=== PATIENT | male | born 1940 | race Caucasian/White ===

== ENCOUNTER → 2018-11-22 | Outpatient (CLI) | payer MEDICARE, OTHER, SELFPAY ==
--- NOTE | 2018-11-22 10:07 | MRI_ITS ---
STUDY: MRI BRAIN WITH AND WITHOUT CONTRAST (ATTENTION INTERNAL AUDITORY CANALS - I.A.C.'s) REASON FOR EXAM: Male, 78 years old. Hearing loss and dizziness with tinnitus in the right ear TECHNIQUE: Standardized multiplanar fat and water weighted pulse sequences were obtained. 15 IV Dotarem was administered for the contrast portion of the examination. COMPARISON: None. FINDINGS: Normal bilateral temporal bones. Normal bilateral internal auditory canals. There is no demonstrated intracanalicular or cisternal vestibular schwannoma (acoustic neuroma). There is no enhancement of the bilateral VIIth or VIIIth cranial nerves. Normal bilateral cochlea, vestibules and semicircular canals. Normal size of the ventricles and extra-axial spaces for the patient's age. There are a limited number of small white matter hyperintensities, distributed throughout the deep white matter tracts of the cerebral hemispheres, consistent with mild chronic white matter ischemic changes. Normal bilateral basal ganglia. Normal thalami. Normal flow voids within the major intracranial circulation suggesting patency by spin echo criteria. Normal venous enhancement. There is no enhancing intra-axial or extra-axial abnormality. There is no extra-axial fluid accumulation. Normal sella turcica, pituitary gland, infundibular stalk, optic chiasm and hypothalamus. Normal tectal plate and pineal gland. Normal midbrain, carolyn and medulla. Normal cerebellum. Normal basal cisterns. No demonstrated orbital abnormality, within the constraints of a routine brain study. Normal visualized paranasal sinuses. Normal calvarium and skull base. Normal visualized soft tissue structures. Normal visualized upper cervical spine. MRI/Brain W/WO Contrast IMPRESSION: Normal unenhanced and enhanced MRI of the bilateral internal auditory canals (I.A.C's). Mild microangiopathic white matter disease. Electronically Signed: Derek Cooper MD at 11:59 EDT Tel , Service support ,
[2018-11-22 11:11] LABS: CREATININE FINGERSTICK 1.1 mg/dL (0.70-1.30); EGFR FINGERSTICK > 60.0000 mL/min (>60)
== END | disposition home or self-care (01) ==
LOC: MRI 09:43
PROVIDERS: Referring Provider Otolaryngology; Visit Provider Otolaryngology
DX: H91.90 Unspecified hearing loss, unspecified ear (principal); R42 Dizziness and giddiness
CPT/HCPCS: 70553; A9575

== ENCOUNTER 2020-12-25 13:33 | Inpatient (IN) | payer MEDICARE, OTHER, SELFPAY ==
[2020-12-25] VITALS (8 sets, daily range): BP systolic 118–206; BP diastolic 64–118; PULSE 71–86; RESP 16–23; TEMP 36.6–37.2; O2SAT 92–99; BMI 24.3; BMI 24.5
--- NOTE | 2020-12-25 13:50 | CT_ITS ---
STUDY: CT BRAIN WITHOUT CONTRAST REASON FOR EXAM: Male, 80 years old. Confusion. Stroke like symptoms. RADIATION DOSAGE (If Supplied By Facility): CTDIvol = ( 44.99 ) mGy, DLP = ( 812.98 ) mGycm TECHNIQUE: Transaxial CT imaging of the brain was performed without administration of intravenous contrast material. Individualized dose optimization techniques were used for this CT. COMPARISON: No relevant priors. FINDINGS: Normal soft tissue structures. Normal calvarium. There is mild cerebral atrophy with widening of the extra-axial spaces and ventricular dilatation. There are areas of decreased attenuation within the white matter tracts of the supratentorial brain, consistent with microvascular disease changes. Normal basal ganglia and thalami. Normal brainstem. Normal cerebellum. There is no intracranial hemorrhage. There are no findings of an acute ischemic infarction. Atherosclerotic calcification of the vertebral arteries and cavernous portions of the internal carotid arteries bilaterally. Partial opacification of the ethmoid sinuses bilaterally. CT/Brain/Head without Contrast IMPRESSION: Chronic involutional changes of the brain. Partial opacification of the ethmoid sinuses bilaterally. Electronically Signed: Adams Martell MD at 14:33 EDT , Service support ,
--- NOTE | 2020-12-25 13:50 | EKG12_ITS ---
Test Reason : CONFUSION Blood Pressure : / mmHG Vent. Rate : 080 BPM Atrial Rate : 080 BPM P-R Int : 160 ms QRS Dur : 140 ms QT Int : 426 ms P-R-T Axes : 056 -77 058 degrees QTc Int : 491 ms Normal sinus rhythm Right bundle branch block Left anterior fascicular block Bifascicular block Minimal voltage criteria for LVH, may be normal variant Septal infarct , age undetermined , cannot be excluded Abnormal ECG Confirmed by MARYAN HWANG, GRISELDA ([id number]), sports editor DONOVAN HADDAD ([id number]) on 12/26/2020 11:28:52 AM Referred By: MARK/KHADAR Confirmed By:GRISELDA STEINBERG MD
[2020-12-25 13:58] LABS: Absolute Lymphocyte Count 1.79 X10^3/uL (0.83-4.51); Absolute Neutrophil Count 6.2 X10^3/uL (2.0-7.7); Basophil# 0.05 X10^3/uL; Basophil% 0.6 % (0-1); Eosinophil# 0.13 X10^3/uL; Eosinophils% 1.5 % (0-5); Hematocrit 44.3 % (40-54); Hemoglobin 14.8 g/dL (13.0-16.5); Lymphocyte # 1.79 X10^3/ul (0.83-4.51); Lymphocyte % 20.3 % (19-41); Mean Corp Hgb Conc 33.4 g/dL (32-36); Mean Corpuscular Volume 86.9 fL (80-94); Mean Platelet Vol. 12.4 fl (6.2-12.0); Monocyte# 0.58 X10^3/uL; Monocyte% 6.6 % (0-10); NRBC Flagged by Analyzer 0 % (0-5); Neutrophil # 6.23 X10^3/uL (2.7-7.7); Neutrophil % 70.8 % (47-70); Platelet Count 249 K/mm3 (150-450); RBC Distribution Width CV 13.6 % (11.6-14.6); RBC Distribution Width SD 43.5 fl (35.1-43.9); White Blood Count 8.8 K/mm3 (4.4-11.0)
--- NOTE | 2020-12-25 14:01 | NURSING ---
NO OLD EKG
[2020-12-25 14:12] LABS: ALB/GLOB Ratio 0.8 RATIO (0.9-2.4); AST(SGOT) 12 U/L (15-37); Alanine Aminotransfer ALT/SGPT 13 U/L (16-61); Albumin, Serum 2.9 g/dL (3.2-5.0); Alkaline Phosphatase 150 U/L (45-117); Anion Gap 6 (5-15); BUN 22 mg/dL (7-18); BUN/Creat Ratio 17.1 RATIO (10-20); Calcium,Total 8.6 mg/dL (8.5-10.1); Chloride 105 mmol/L (98-107); Creatinine, Serum 1.29 mg/dL (0.70-1.30); EST Glomerular Filtration Rate 57 mL/min (>60); Est Glom Filt Rate - Afr Amer 69 mL/min (>60); Estimated Creatinine Clearance 47.16 ml/min; Globulin 3.6 g/dL (2.2-4.2); Glucose 271 mg/dL (74-106); Potassium 3.4 mmol/L (3.5-5.1); Protein, Total 6.5 g/dL (6.4-8.2); Sodium Level 139 mmol/L (136-145)
[2020-12-25 15:03] LABS: Bacteria 0 SEEN /hpf (None Seen); Mucous, Urine 0 SEEN /hpf (<or=2+); Red Blood Cells-Urine 0 SEEN /hpf (0-5); Squamous Epithelial Cells - UA 0 SEEN /hpf (0-5)
[2020-12-25 15:05] LABS: Color, Urine Yellow (Yellow); Glucose, Dipstick 1000 mg/dl (Normal); Ketone-Dipstick 5 mg/dl (Negative); Leukocyte Esterase-Dipstick 25 /ul (Negative); Nitrite-Dipstick Positive (Negative); Occult Blood-Urine 50 /ul (Negative); Protein-Dipstick 500 mg/dl (Negative); Specific Gravity, Urine 1.015 (1.002-1.030); Urine Bilirubin Dipstick Negative (Negative); Urine Clarity Sl. Cloudy (Clear); Urine Urobilinogen Normal (Normal)
[2020-12-25 15:13] LABS: White Blood Cells 25-50 SEEN /hpf (0-5)
--- NOTE | 2020-12-25 15:17 | EX.ED.DYSGE1 ---
HPI History of Present Illness Chief Complaint: Confusion Narrative Narrative: 80-year-old male who lives by himself. He is a poor informant. Family reports that he has confusion that began yesterday. Patient reports that he was so weak overnight that he was unable to get in bed and he slept on the floor. States that today he has been unable to get a out of a chair because his legs are so weak. Patient reports that he had a nonproductive cough for the past 2 weeks. He denies any fever or chills. No chest pain or shortness of breath. No abdominal pain, nausea, vomiting, or diarrhea. No dysuria or frequency. No headache. He denies any fall. PFSH PFS Home Medications aspirin 81 mg PO DAILY 12/25/20 [History Last Taken 2 Months Ago ~10/25/20] atorvastatin 20 mg PO DAILY 12/25/20 [History Last Taken 2 Months Ago ~10/25/20] cholecalciferol (vitamin D3) 5,000 unit PO DAILY 12/25/20 [History Last Taken 2 Months Ago ~10/25/20] cyanocobalamin (vitamin B-12) 1,000 mcg IM QMONTH 12/25/20 [History Last Taken 2 Months Ago ~10/25/20] folic acid 1 mg PO DAILY 12/25/20 [History Last Taken 2 Months Ago ~10/25/20] glipizide 10 mg PO DAILY 12/25/20 [History Last Taken 2 Months Ago ~10/25/20] lisinopril 2.5 mg PO DAILY 12/25/20 [History Last Taken 2 Months Ago ~10/25/20] lisinopril 5 mg PO DAILY 12/25/20 [History Last Taken 2 Months Ago ~10/25/20] metformin 1,000 mg PO BID 12/25/20 [History Last Taken 2 Months Ago ~10/25/20] metoprolol tartrate 25 mg PO BID 12/25/20 [History Last Taken 2 Months Ago ~10/25/20] warfarin 1 mg PO DAILY 12/25/20 [History Last Taken 2 Months Ago ~10/25/20] warfarin 5 mg PO DAILY 12/25/20 [History Last Taken 2 Months Ago ~10/25/20] Allergy/AdvReac Type Severity Reaction Status Date / Time No Known Allergies Allergy Verified 12/25/20 13:38 Social History Smoking Status: Current every day smoker tobacco type: cigarettes ROS ROS ED Constitutional Constitutional ED: Denies chills, fever(s) or sweats Eyes Eyes: Denies change in vision ENT ENT ED: Denies sore throat Cardiovascular Cardiovascular: Denies chest pain Respiratory/Chest Respiratory/Chest: Reports cough; Denies dyspnea or dyspnea on exertion Gastrointestinal Gastrointestinal: Denies abdominal pain, diarrhea, melena, nausea or vomiting Genitourinary Genitourinary ED: Denies dysuria or urinary frequency Musculoskeletal Musculoskeletal: Denies myalgias Integumentary Denies rash Neurologic Neurologic: Reports weakness; Denies headache(s) or paresthesias EXAM Physical Exam Const Vital Signs: 12/25/20 13:33 12/25/20 15:08 Temperature 98.0 F Temperature Source Oral Pulse Rate 86 74 Respiratory Rate 16 18 Blood Pressure 206/118 H 190/96 H Blood Pressure Mean 147 127 Pulse Ox 97 97 Oxygen Delivery Method Room Air Room Air Positive well nourished and well developed General Appearance ED: well developed HEENT Reports normocephalic and head/scalp atraumatic Eyes PERRL Neck no lymphadenopathy, supple and no JVD General: Negative for tenderness Resp normal respiratory effort and clear to auscultation bilaterally Cardio regular rate and regular rhythm Rate: other Other Details: 2 out of 6 systolic murmur GI normal to inspection, nondistended, normoactive bowel sounds and non-tender GI Narrative: No guarding, rebound, or peritoneal signs. Palpation: soft Back/Spine Back/Spine Narrative: Nontender. Extremity General Extremety ED: Negative for edema or tenderness General Extremity: Negative for edema Neuro CN's II-XII intact bilaterally and no sensory deficits noted Neuro Narrative: Oriented x2. Sensorium / Orientation: alert Motor Exam: strength 5/5 throughout Psych mental status grossly normal Skin no rashes or lesions noted MDM MDM Lab Data Labs: Laboratory Results - last 24 hr 12/25/20 12/25/20 12/25/20 13:00 13:00 15:00 WBC 8.8 RBC 5.10 Hgb 14.8 Hct 44.3 MCV 86.9 MCH 29.0 MCHC 33.4 RDW Std Deviation 43.5 RDW Coeff of Annette 13.6 Plt Count 249 MPV 12.4 H Immature Gran % (Auto) 0.200 Neut % (Auto) 70.8 H Lymph % (Auto) 20.3 [place] % (Auto) 6.6 Eos % (Auto) 1.5 Baso % (Auto) 0.6 Absolute Neuts (auto) 6.2 Absolute Lymphs (auto) 1.79 Nucleated RBC % 0 Sodium 139 Potassium 3.4 L Chloride 105 Carbon Dioxide 28.0 Anion Gap 6 BUN 22 H Creatinine 1.29 Estim Creat Clear Calc 47.16 Est GFR (MDRD) Af Amer 69 Est GFR (MDRD) Non-Af 57 L BUN/Creatinine Ratio 17.1 Glucose 271 H Calcium 8.6 Total Bilirubin 0.50 AST 12 L ALT 13 L Alkaline Phosphatase 150 H Troponin I 0.018 Total Protein 6.5 Albumin 2.9 L Globulin 3.6 Albumin/Globulin Ratio 0.8 L Urine Color Yellow Urine Clarity Sl. Cloudy Urine pH 6.0 Ur Specific [place] 1.015 Urine Protein 500 H Urine Glucose (UA) 1000 H Urine Ketones 5 H Urine Occult Blood 50 H Urine Nitrite Positive H Urine Bilirubin Negative Urine Urobilinogen Normal Ur Leukocyte Esterase 25 H Urine RBC 0 SEEN Urine WBC 25-50 SEEN Ur Squamous Epith Cells 0 SEEN Urine Bacteria 0 SEEN Urine Mucus 0 SEEN Radiography Diagnostic Testing: Radiology Impression Brain CT 12/25/20 13:50 IMPRESSION: Chronic involutional changes of the brain. Partial opacification of the ethmoid sinuses bilaterally. Electronically Signed: Adams Martell MD at 14:33 EDT , Service support , EKG Initial EKG: Attestation: I personally reviewed and interpreted this EKG as follows: Interpretation: Sinus Rhythm, RBBB and LAFB Comments: EKG is sinus at 80 with a bifascicular block. Nonspecific ST changes. There is no old EKG for comparison. Treatment and Re-Evaluation Comments:: Emergency department course: Patient is resting comfortably. His urine is nitrite positive with 25-50 white blood cells. This was sent for culture. He was given a dose of Rocephin IV. Treatment plan: Patient be discussed with the hospitalist and admitted to the hospital for further evaluation and treatment. Discharge Plan Triage Chief Complaint: Confusion ED Provider: Placido Montgomery Dx/Rx/DC Orders Clinical Impression: Acute UTI, Delirium, Weakness Prescriptions: No Action atorvastatin 20 mg tablet 20 mg PO DAILY RF: 0 glipizide 5 mg tablet extended release 24hr 10 mg PO DAILY RF: 0 aspirin 81 mg Tablet,Delayed Release (Dr/Ec) 81 mg PO DAILY RF: 0 cyanocobalamin (vitamin B-12) 1,000 mcg/mL solution 1,000 mcg IM QMONTH RF: 0 metformin 1,000 mg tablet 1,000 mg PO BID RF: 0 warfarin 5 mg tablet 5 mg PO DAILY RF: 0 folic acid 1 mg tablet 1 mg PO DAILY RF: 0 lisinopril 5 mg tablet 5 mg PO DAILY RF: 0 warfarin 1 mg tablet 1 mg PO DAILY RF: 0 lisinopril 2.5 mg tablet 2.5 mg PO DAILY RF: 0 cholecalciferol (vitamin D3) 125 mcg (5,000 unit) capsule 5,000 unit PO DAILY RF: 0 metoprolol tartrate 25 mg tablet 25 mg PO BID RF: 0 Primary Care Provider: Austin Rowland Referrals: Austin Rowland MD [Primary Care Provider] -
[2020-12-25] MEDS: Ceftriaxone 1 GM/50 ML BAG IV (15:26)
--- NOTE | 2020-12-25 15:57 | PCM.HP.STD ---
Documented by User: Michelle Chatman NP, ORAL COMMUNICATION INSTRUCTOR-C 12/25/20 16:19 HPI - General General Date of Admission: 12/25/20 Date of Service: 12/25/20 Chief Complaint: Confusion, weakness. HPI Narrative RKII HYATT, is a 80 M who presents to the emergency room due to confusion and weakness. On assessment, patient states it is november,. Knows he is in [facility]. Denies fever, urinary symptoms. No family present at bedside. States he has been weak at home and has been crawling across to the floor to get around at home. Both of his knees have abrasions. He denies confusion. Patient is a poor informant regarding his past medical history. He states he had a stroke a few years ago. He states he became upset with his primary care provider and stopped following up and stopped taking all of his prescribed medications. Per records, it appears he has a past medical history of hypertension, hyperlipidemia, type 2 diabetes mellitus, paroxysmal atrial fibrillation, history of CVA. [facility] Medical History (Updated 12/25/20 @ 16:04 by Michelle Chatman NP, ORAL COMMUNICATION INSTRUCTOR-C) H/O nephrolithotomy with removal of calculi Home Medications aspirin 81 mg PO DAILY 12/25/20 [History Last Taken 2 Months Ago ~10/25/20] atorvastatin 20 mg PO DAILY 12/25/20 [History Last Taken 2 Months Ago ~10/25/20] cholecalciferol (vitamin D3) 5,000 unit PO DAILY 12/25/20 [History Last Taken 2 Months Ago ~10/25/20] cyanocobalamin (vitamin B-12) 1,000 mcg IM QMONTH 12/25/20 [History Last Taken 2 Months Ago ~10/25/20] folic acid 1 mg PO DAILY 12/25/20 [History Last Taken 2 Months Ago ~10/25/20] glipizide 10 mg PO DAILY 12/25/20 [History Last Taken 2 Months Ago ~10/25/20] lisinopril 2.5 mg PO DAILY 12/25/20 [History Last Taken 2 Months Ago ~10/25/20] lisinopril 5 mg PO DAILY 12/25/20 [History Last Taken 2 Months Ago ~10/25/20] metformin 1,000 mg PO BID 12/25/20 [History Last Taken 2 Months Ago ~10/25/20] metoprolol tartrate 25 mg PO BID 12/25/20 [History Last Taken 2 Months Ago ~10/25/20] warfarin 1 mg PO DAILY 12/25/20 [History Last Taken 2 Months Ago ~10/25/20] warfarin 5 mg PO DAILY 12/25/20 [History Last Taken 2 Months Ago ~10/25/20] Allergy/AdvReac Type Severity Reaction Status Date / Time No Known Allergies Allergy Verified 12/25/20 13:38 Family History Mother CHF (congestive heart failure) Father Alcohol abuse by father other (Father related to alcohol abuse. Mother related to CHF.) Surgical History History of appendectomy History of tonsillectomy Social History Smoking Status: Current every day smoker tobacco type: cigarettes ROS ROS Narrative Patient reports general weakness, bilateral knee abrasions related to crawling on floor. Constitutional Constitutional: Reports weakness; Denies change in weight, chills, fatigue or fever(s) Cardiovascular Cardiovascular: Denies chest pain, edema, lightheadedness, palpitations or syncope Respiratory/Chest Respiratory/Chest: Denies cough, dyspnea, productive cough, shortness of breath at rest, shortness of breath with exertion or wheezing Gastrointestinal Gastrointestinal: Denies abdominal pain, constipation, diarrhea, nausea or vomiting Genitourinary Genitourinary: Denies burning urination, difficulty urinating, dysuria, hematuria, urinary frequency, urinary incontinence or urinary urgency Musculoskeletal Musculoskeletal: Denies back pain, joint pain or muscle weakness Integumentary Integumentary: Reports systems reviewed and no addt'l complaints, except as documented Neurologic Neurologic: Denies abnormal speech, confusion, dizziness, focal weakness, numbness, paresthesias, seizure-like activity or syncope Psychiatric Psychiatric: Denies anxiety or depression Hematologic/Lymphatic Hematologic/Lymphatic: Denies anemia, easy bleeding or easy bruising Allergic/Immunologic Allergic/Immunologic: Denies hives or asthma Vital Signs Vital Signs Vital Signs: 12/25/20 13:33 12/25/20 15:08 12/25/20 15:33 Temperature 98.0 F 98.4 F Temperature Source Oral Oral Pulse Rate 86 74 71 Respiratory Rate 16 18 23 H Blood Pressure 206/118 H 190/96 H 118/67 Blood Pressure Mean 147 127 84 Pulse Ox 97 97 92 Oxygen Delivery Method Room Air Room Air Room Air Weight Weight: 169 lb 12.095 oz Body Mass Index (BMI) 24.3 Physical Exam Const alert and no apparent distress Orientation / Consciousness: oriented to person and oriented to place HEENT normocephalic and moist oral mucous membranes Eyes PERRL, EOMs intact bilaterally and conjunctivae normal Neck no lymphadenopathy Resp normal respiratory effort and clear to auscultation bilaterally Cardio regular rate, regular rhythm and no murmurs Peripheral Pulses: pulses 2+ throughout GI normal to inspection, nondistended, normoactive bowel sounds, non-tender and non-distended Extremity normal to inspection Skin no rashes or lesions noted Skin Narrative: Bilateral knee abrasions Lesions: no lesions Rashes: no rashes Trauma: no lacerations or abrasions Neuro CN's II-XII intact bilaterally, no focal motor deficits, no sensory deficits noted and deep tendon reflexes 2+ bilaterally Psych mental status grossly normal and affect normal Lab / Micro Data Result Diagrams: 12/25/20 13:00 12/25/20 13:00 Labs: Laboratory Results - last 24 hr 12/25/20 12/25/20 12/25/20 13:00 13:00 15:00 WBC 8.8 RBC 5.10 Hgb 14.8 Hct 44.3 MCV 86.9 MCH 29.0 MCHC 33.4 RDW Std Deviation 43.5 RDW Coeff of Annette 13.6 Plt Count 249 MPV 12.4 H Immature Gran % (Auto) 0.200 Neut % (Auto) 70.8 H Lymph % (Auto) 20.3 [place] % (Auto) 6.6 Eos % (Auto) 1.5 Baso % (Auto) 0.6 Absolute Neuts (auto) 6.2 Absolute Lymphs (auto) 1.79 Nucleated RBC % 0 Sodium 139 Potassium 3.4 L Chloride 105 Carbon Dioxide 28.0 Anion Gap 6 BUN 22 H Creatinine 1.29 Estim Creat Clear Calc 47.16 Est GFR (MDRD) Af Amer 69 Est GFR (MDRD) Non-Af 57 L BUN/Creatinine Ratio 17.1 Glucose 271 H Calcium 8.6 Total Bilirubin 0.50 AST 12 L ALT 13 L Alkaline Phosphatase 150 H Troponin I 0.018 Total Protein 6.5 Albumin 2.9 L Globulin 3.6 Albumin/Globulin Ratio 0.8 L Urine Color Yellow Urine Clarity Sl. Cloudy Urine pH 6.0 Ur Specific [place] 1.015 Urine Protein 500 H Urine Glucose (UA) 1000 H Urine Ketones 5 H Urine Occult Blood 50 H Urine Nitrite Positive H Urine Bilirubin Negative Urine Urobilinogen Normal Ur Leukocyte Esterase 25 H Urine RBC 0 SEEN Urine WBC 25-50 SEEN Ur Squamous Epith Cells 0 SEEN Urine Bacteria 0 SEEN Urine Mucus 0 SEEN Radiology Impression Brain CT 12/25/20 13:50 IMPRESSION: Chronic involutional changes of the brain. Partial opacification of the ethmoid sinuses bilaterally. Electronically Signed: Adams Martell MD at 14:33 EDT , Service support , Assessment & Plan Assessment/Plan (1) Acute UTI: (2) Weakness: PLAN: 1. Acute infectious encephalopathy and debility secondary to acute UTI-IV Rocephin pending cultures. PT/OT. Case management consult. Patient lives alone and states he has been crawling across the floor at his house. Patient stopped taking all of his medications 2 months ago. 2. Hypertension- elevated on admission. Resume home lisinopril, metoprolol. 3. Hyperlipidemia- continue statin. 4. Type 2 diabetes mellitus-hold oral regimen. Accu-Cheks with sliding scale insulin. 5. Paroxysmal atrial fibrillation-resume home Coumadin, metoprolol regimen. 6. History of CVA-continue aspirin, statin, Coumadin. DVT prophylaxis-resume home Coumadin, trend INR This patient was seen by BERNABE Giordano under the supervision of Dr. Redd. Documented by User: Dr. Ama Redd MD 12/25/20 16:45 HPI - General General Date of Admission: 12/25/20 [facility] Medical History (Updated 12/25/20 @ 16:04 by Michelle Chatman NP, ORAL COMMUNICATION INSTRUCTOR-C) H/O nephrolithotomy with removal of calculi Home Medications aspirin 81 mg PO DAILY 12/25/20 [History Last Taken 2 Months Ago ~10/25/20] atorvastatin 20 mg PO DAILY 12/25/20 [History Last Taken 2 Months Ago ~10/25/20] cholecalciferol (vitamin D3) 5,000 unit PO DAILY 12/25/20 [History Last Taken 2 Months Ago ~10/25/20] cyanocobalamin (vitamin B-12) 1,000 mcg IM QMONTH 12/25/20 [History Last Taken 2 Months Ago ~10/25/20] folic acid 1 mg PO DAILY 12/25/20 [History Last Taken 2 Months Ago ~10/25/20] glipizide 10 mg PO DAILY 12/25/20 [History Last Taken 2 Months Ago ~10/25/20] lisinopril 2.5 mg PO DAILY 12/25/20 [History Last Taken 2 Months Ago ~10/25/20] lisinopril 5 mg PO DAILY 12/25/20 [History Last Taken 2 Months Ago ~10/25/20] metformin 1,000 mg PO BID 12/25/20 [History Last Taken 2 Months Ago ~10/25/20] metoprolol tartrate 25 mg PO BID 12/25/20 [History Last Taken 2 Months Ago ~10/25/20] warfarin 1 mg PO DAILY 12/25/20 [History Last Taken 2 Months Ago ~10/25/20] warfarin 5 mg PO DAILY 12/25/20 [History Last Taken 2 Months Ago ~10/25/20] Allergy/AdvReac Type Severity Reaction Status Date / Time No Known Allergies Allergy Verified 12/25/20 13:38 Family History Mother CHF (congestive heart failure) Father Alcohol abuse by father Surgical History History of appendectomy History of tonsillectomy Social History Smoking Status: Current every day smoker tobacco type: cigarettes Lab / Micro Data Result Diagrams: 12/25/20 13:00 12/25/20 13:00 Addendum Addendum: This patient was seen in conjunction with Michelle Chatman. I have independently interviewed and examined the patient and reviewed pertinent historical, laboratory, and other data. I have reviewed her note and concur with her documentation 79-year-old male with multiple comorbidities as type II DM, paroxysmal atrial fibrillation, hypertension hyperlipidemia who comes in with confusion. Patient is a poor historian. He is alert oriented x2, not oriented to time. Patient comes in because of progressive weakness. He has poor oral intake. He has not been able to walk and has been crawling at home. He has abrasions on his knees. He quit taking his medicines more than a year ago. His labs are significant for UTI Physical Exam: Gen: Looks in some discomfort, appears disheveled, not pale, not jaundiced CVS:HS I +II, regular, no murmurs RESP:CTA GI: BS present and normal, soft, nontender, no palpable organs EXT:No edema, bruises on both anterior knees Labs: Potassium is 3.4, creatinine is 1.29, no previous creatinine to compare ASSESSMENT: 1. Acute metabolic/infectious encephalopathy secondary to UTI 2. Hypokalemia 3. Hypertension 4. Type II DM 5. Hyperlipidemia 6. Paroxysmal A. fib, 7. History of CVA 8. Suspected chronic cognitive impairment Plan: Continue on IV ceftriaxone, follow-up on urine cultures Replace potassium Gentle IV fluids Resume home medications Blood glucose checks with insulin sliding scale Discussed and explained in details the various types of CODE STATUS-full code, DNR CCA, DNR CC. Patient chose to be full code and wanted everything done. POA in the system had no number to call. Time spent discussing CODE STATUS 18 minutes Visit Charges Inpatient E&M: 73988 Init Hosp L3
[2020-12-25 17:16] LABS: International Normalized Ratio 1.1
[2020-12-25] MEDS: 0.9% Normal Saline 1,000 ML 100 ML IV (17:19)
[2020-12-25] MEDS: Lisinopril 5 MG Tablet PO (17:20)
[2020-12-25 17:26] LABS: Bedside Glucose 237 mg/dL (70-110)
[2020-12-25] MEDS: Potassium Chloride Oral Tablet 20 MEQ 40 MEQ PO (17:29)
[2020-12-25] MEDS: Lisinopril 2.5 MG Tablet PO (17:29)
[2020-12-25] MEDS: Insulin Lispro 100 UNIT/ML INSULN.PEN SC ×2 (17:29→21:17)
[2020-12-25] MEDS: 0.9% Saline Lock 10 ML Syringe IV (18:53)
[2020-12-25] MEDS: hydrALAZINE 20 MG/ML Vial 10 MG IV (18:53)
[2020-12-25] MEDS: Metoprolol Tartrate 25 MG Tablet PO (21:17)
[2020-12-25] MEDS: Heparin Injection (Vial) 5,000 UNIT/ML VIAL 5000 UNIT SC (21:17)
[2020-12-25] MEDS: Atorvastatin Calcium 20 MG Tablet PO (21:17)
[2020-12-25 22:30] LABS: Bedside Glucose 318 mg/dL (70-110)
[2020-12-26] VITALS (8 sets, daily range): BP systolic 139–190; BP diastolic 57–87; PULSE 63–76; RESP 16–18; TEMP 35.9–37; O2SAT 94–98
[2020-12-26] MEDS: 0.9% Normal Saline 1,000 ML 100 ML IV ×3 (02:43→21:44)
[2020-12-26] MEDS: Heparin Injection (Vial) 5,000 UNIT/ML VIAL 5000 UNIT SC ×3 (05:06→21:44)
[2020-12-26] MEDS: Ondansetron 4 MG/2 ML Vial IV (05:38)
[2020-12-26 06:00] LABS: Absolute Lymphocyte Count 1.56 X10^3/uL (0.83-4.51); Absolute Neutrophil Count 6.7 X10^3/uL (2.0-7.7); Basophil# 0.05 X10^3/uL; Basophil% 0.6 % (0-1); Eosinophil# 0.11 X10^3/uL; Eosinophils% 1.2 % (0-5); Hematocrit 44.1 % (40-54); Hemoglobin 14.5 g/dL (13.0-16.5); Lymphocyte # 1.56 X10^3/ul (0.83-4.51); Lymphocyte % 17.3 % (19-41); Mean Corp Hgb Conc 32.9 g/dL (32-36); Mean Corpuscular Hgb 28.5 pg (27.0-32.0); Mean Corpuscular Volume 86.8 fL (80-94); Mean Platelet Vol. 12.2 fl (6.2-12.0); Monocyte# 0.57 X10^3/uL; Monocyte% 6.3 % (0-10); NRBC Flagged by Analyzer 0 % (0-5); Neutrophil # 6.72 X10^3/uL (2.7-7.7); Neutrophil % 74.3 % (47-70); Platelet Count 258 K/mm3 (150-450); RBC Distribution Width CV 13.5 % (11.6-14.6); RBC Distribution Width SD 42.8 fl (35.1-43.9); Red Blood Count 5.08 M/mm3 (4.6-6.2)
[2020-12-26 06:13] LABS: International Normalized Ratio 1.1; Prothrombin Time (Protime)PT. 13.8 SECONDS (11.7-14.9)
[2020-12-26 06:26] LABS: ALB/GLOB Ratio 0.8 RATIO (0.9-2.4); AST(SGOT) 19 U/L (15-37); Alanine Aminotransfer ALT/SGPT 14 U/L (16-61); Albumin, Serum 2.6 g/dL (3.2-5.0); Alkaline Phosphatase 138 U/L (45-117); Anion Gap 7 (5-15); BUN 19 mg/dL (7-18); BUN/Creat Ratio 16.4 RATIO (10-20); Calcium,Total 8.3 mg/dL (8.5-10.1); Chloride 109 mmol/L (98-107); Creatinine, Serum 1.16 mg/dL (0.70-1.30); EST Glomerular Filtration Rate 64 mL/min (>60); Est Glom Filt Rate - Afr Amer 78 mL/min (>60); Estimated Creatinine Clearance 50.79 ml/min; Globulin 3.4 g/dL (2.2-4.2); Glucose 261 mg/dL (74-106); Potassium 3.7 mmol/L (3.5-5.1); Sodium Level 140 mmol/L (136-145)
[2020-12-26] MEDS: Insulin Lispro 100 UNIT/ML INSULN.PEN SC ×4 (06:37→21:44)
[2020-12-26 06:40] LABS: Bedside Glucose 234 mg/dL (70-110)
[2020-12-26] MEDS: hydrALAZINE 20 MG/ML Vial 10 MG IV (06:45)
[2020-12-26] MEDS: Ceftriaxone 1 GM/50 ML BAG IV (08:38)
[2020-12-26] MEDS: amLODIPine 10 MG Tablet PO (08:40)
[2020-12-26] MEDS: Lisinopril 5 MG Tablet PO (08:41)
[2020-12-26] MEDS: Lisinopril 2.5 MG Tablet PO (08:41)
[2020-12-26] MEDS: Cholecalciferol (VIT D3) 25 MCG TABLET (1,000 UNITS) 125 MCG PO (08:41)
[2020-12-26] MEDS: Metoprolol Tartrate 25 MG Tablet PO ×2 (08:42→21:43)
[2020-12-26] MEDS: Aspirin E.C. 81 MG Tablet PO (08:42)
--- NOTE | 2020-12-26 09:59 | CASEMGMT ---
Patient is A&OX2 per nursing. There are no contacts with phone numbers listed and patient has not been to [facility] before except for an MRI. SW called patient's doctor's office and left a message requesting a return call. Shirley MAR
--- NOTE | 2020-12-26 10:05 | CASEMGMT ---
RADHA received a return call from Dr Rowland's office and they have patient's daughter Nadiya listed as an emergency contact. Her phone number is [phone]. RADHA put this information in the computer. Shirley MAR
--- NOTE | 2020-12-26 10:32 | CASEMGMT ---
Addendum entered by Shirley Kenny 12/26/20 10:52: SW asked patient for his nephew's contact information. He had some trouble getting it on his phone. He would get so far and then not know what to do next. SW then helped him and was able to obtain the phone number. His name is Rosa [phone]. This was also added in computer. Shirley MAR Original Note: Assessment- SW completed assessment with patient at bedside. SW woke him up and he was willing to participate. SW did also call patient's nephew to verify patient's answers as he is somewhat confused. Living situation- Patient lives alone in a 2 story home with 1 entry step. ? PCP: Was Dr Rowland but he wants a new PCP Specialists: None Pharmacy: [facility] in [place], but he wants to switch to [facility] in [place] because it is closer. DME:? Walker and cane ADL's/IADL's: Per patient and his nephew patient is independent with all ADLs and IADLs. 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 Past SNF/rehab: None Past HH: Yes. He koenig not know the agency LW: Yes. He is aware it is not on file at [facility] POA:? Yes. He is aware it is not on file at [facility]. His daughter Nadiya is his Healthcare POA. ? ? Plan: RADHA obtained permission to call patient's nephew and/or daughter. RADHA called patient's nephew Rosa. He said that he checks on patient regularly. He owns the farm and patient lives [place] house [place] the farm. He said patient normally does really well at home. He is very stubborn and stopped going to his doctor because they disagreed on something. He said patient and his daughter do not always get along. RADHA thanked him for his assistance. ? Shirley STORM
[2020-12-26 12:00] LABS: Bedside Glucose 274 mg/dL (70-110)
--- NOTE | 2020-12-26 12:15 | PN.HOSP_ITS ---
Subjective Subjective Feels little bit better than when he came in, states that he has a little bit of an upset stomach this morning was only able to eat few pieces of farrell Objective Data Objective Data Vital Signs: Vital Signs Temp Pulse Resp BP Pulse Ox 97.1 F L 76 18 141/62 H 97 12/26/20 08:30 12/26/20 08:42 12/26/20 08:30 12/26/20 08:42 12/26/20 08:30 Oxygen Delivery Method Room Air Weight: 165 lb 12.813 oz Body Mass Index (BMI) 24.5 Intake & Output: Intake and Output for Last 24 Hours 12/25/20 12/26/20 12/27/20 03:59 03:59 03:59 Intake Total 1350 / 1350 1125 / 1125 Output Total 800 / 800 651 / 651 Balance 550 / 550 474 / 474 Lab / Micro Data Result Diagrams: 12/26/20 05:48 12/26/20 05:48 Labs: Laboratory Results - last 24 hr 12/25/20 12/25/20 12/25/20 13:00 13:00 13:00 WBC 8.8 RBC 5.10 Hgb 14.8 Hct 44.3 MCV 86.9 MCH 29.0 MCHC 33.4 RDW Std Deviation 43.5 RDW Coeff of Annette 13.6 Plt Count 249 MPV 12.4 H Immature Gran % (Auto) 0.200 Neut % (Auto) 70.8 H Lymph % (Auto) 20.3 Hunt % (Auto) 6.6 Eos % (Auto) 1.5 Baso % (Auto) 0.6 Absolute Neuts (auto) 6.2 Absolute Lymphs (auto) 1.79 Nucleated RBC % 0 PT 14.0 INR 1.1 Sodium 139 Potassium 3.4 L Chloride 105 Carbon Dioxide 28.0 Anion Gap 6 BUN 22 H Creatinine 1.29 Estim Creat Clear Calc 47.16 Est GFR (MDRD) Af Amer 69 Est GFR (MDRD) Non-Af 57 L BUN/Creatinine Ratio 17.1 Glucose 271 H Calcium 8.6 Total Bilirubin 0.50 AST 12 L ALT 13 L Alkaline Phosphatase 150 H Troponin I 0.018 Total Protein 6.5 Albumin 2.9 L Globulin 3.6 Albumin/Globulin Ratio 0.8 L Urine Color Urine Clarity Urine pH Ur Specific [place] Urine Protein Urine Glucose (UA) Urine Ketones Urine Occult Blood Urine Nitrite Urine Bilirubin Urine Urobilinogen Ur Leukocyte Esterase Urine RBC Urine WBC Ur Squamous Epith Cells Urine Bacteria Urine Mucus POC Glucose 12/25/20 12/25/20 12/25/20 15:00 17:23 21:14 WBC RBC Hgb Hct MCV MCH MCHC RDW Std Deviation RDW Coeff of Annette Plt Count MPV Immature Gran % (Auto) Neut % (Auto) Lymph % (Auto) Hunt % (Auto) Eos % (Auto) Baso % (Auto) Absolute Neuts (auto) Absolute Lymphs (auto) Nucleated RBC % PT INR Sodium Potassium Chloride Carbon Dioxide Anion Gap BUN Creatinine Estim Creat Clear Calc Est GFR (MDRD) Af Amer Est GFR (MDRD) Non-Af BUN/Creatinine Ratio Glucose Calcium Total Bilirubin AST ALT Alkaline Phosphatase Troponin I Total Protein Albumin Globulin Albumin/Globulin Ratio Urine Color Yellow Urine Clarity Sl. Cloudy Urine pH 6.0 Ur Specific [place] 1.015 Urine Protein 500 H Urine Glucose (UA) 1000 H Urine Ketones 5 H Urine Occult Blood 50 H Urine Nitrite Positive H Urine Bilirubin Negative Urine Urobilinogen Normal Ur Leukocyte Esterase 25 H Urine RBC 0 SEEN Urine WBC 25-50 SEEN Ur Squamous Epith Cells 0 SEEN Urine Bacteria 0 SEEN Urine Mucus 0 SEEN POC Glucose 237 H 318 H 12/26/20 12/26/20 12/26/20 05:48 05:48 05:48 WBC 9.0 RBC 5.08 Hgb 14.5 Hct 44.1 MCV 86.8 MCH 28.5 MCHC 32.9 RDW Std Deviation 42.8 RDW Coeff of Annette 13.5 Plt Count 258 MPV 12.2 H Immature Gran % (Auto) 0.300 Neut % (Auto) 74.3 H Lymph % (Auto) 17.3 L Hunt % (Auto) 6.3 Eos % (Auto) 1.2 Baso % (Auto) 0.6 Absolute Neuts (auto) 6.7 Absolute Lymphs (auto) 1.56 Nucleated RBC % 0 PT 13.8 INR 1.1 Sodium 140 Potassium 3.7 Chloride 109 H Carbon Dioxide 24.0 Anion Gap 7 BUN 19 H Creatinine 1.16 Estim Creat Clear Calc 50.79 Est GFR (MDRD) Af Amer 78 Est GFR (MDRD) Non-Af 64 BUN/Creatinine Ratio 16.4 Glucose 261 H Calcium 8.3 L Total Bilirubin 0.50 AST 19 ALT 14 L Alkaline Phosphatase 138 H Troponin I Total Protein 6.0 L Albumin 2.6 L Globulin 3.4 Albumin/Globulin Ratio 0.8 L Urine Color Urine Clarity Urine pH Ur Specific [place] Urine Protein Urine Glucose (UA) Urine Ketones Urine Occult Blood Urine Nitrite Urine Bilirubin Urine Urobilinogen Ur Leukocyte Esterase Urine RBC Urine WBC Ur Squamous Epith Cells Urine Bacteria Urine Mucus POC Glucose 12/26/20 12/26/20 06:36 11:22 WBC RBC Hgb Hct MCV MCH MCHC RDW Std Deviation RDW Coeff of Annette Plt Count MPV Immature Gran % (Auto) Neut % (Auto) Lymph % (Auto) Hunt % (Auto) Eos % (Auto) Baso % (Auto) Absolute Neuts (auto) Absolute Lymphs (auto) Nucleated RBC % PT INR Sodium Potassium Chloride Carbon Dioxide Anion Gap BUN Creatinine Estim Creat Clear Calc Est GFR (MDRD) Af Amer Est GFR (MDRD) Non-Af BUN/Creatinine Ratio Glucose Calcium Total Bilirubin AST ALT Alkaline Phosphatase Troponin I Total Protein Albumin Globulin Albumin/Globulin Ratio Urine Color Urine Clarity Urine pH Ur Specific [place] Urine Protein Urine Glucose (UA) Urine Ketones Urine Occult Blood Urine Nitrite Urine Bilirubin Urine Urobilinogen Ur Leukocyte Esterase Urine RBC Urine WBC Ur Squamous Epith Cells Urine Bacteria Urine Mucus POC Glucose 234 H 274 H Radiography Diagnostic Testing: Radiology Impression Brain CT 12/25/20 13:50 IMPRESSION: Chronic involutional changes of the brain. Partial opacification of the ethmoid sinuses bilaterally. Electronically Signed: Adams Martell MD at 14:33 EDT , Service support , Physical Exam Const alert, oriented x3 and no apparent distress HEENT moist oral mucous membranes Head and Scalp: normocephalic Eyes PERRL, EOMs intact bilaterally and conjunctivae normal Neck no lymphadenopathy, supple and no JVD Resp normal respiratory effort and clear to auscultation bilaterally Auscultation: Negative for crackles, rales, rhonchi or wheezes Cardio regular rate, regular rhythm, S1 normal heart sound, S2 normal heart sound, no murmurs and no gallops GI soft to palpation, non-tender and non-distended; Negative for hepatosplenomegaly Extremity no clubbing, cyanosis or edema Skin no rashes or lesions noted Neuro no focal motor deficits and no sensory deficits noted Psych affect normal Appearance: appropriate Assessment & Plan Assessment/Plan (1) Acute UTI: (2) Weakness: (3) Diabetes mellitus, type 2: QUALIFIERS: Diabetes mellitus assisted insulin use: without assisted use Diabetes mellitus complication status: with hyperglycemia Qualified Code(s): E11.65 - Type 2 diabetes mellitus with hyperglycemia (4) Acute metabolic encephalopathy: PLAN: 1. Acute metabolic encephalopathy secondary to UTI versus hyperglycemia -On admission he was confused which has resolved with initiation of antibiotics and insulin -Urine culture is pending -Blood sugar on admission was 271, and his UA had 1000 glucose -UA did not have any urine bacteria, did have leukocytes and small leukocyte esterase with positive nitrites -In the meantime we will continue with his antibiotics and await urine culture though I believe that his encephalopathy was secondary to his hyperglycemia and the fact that he has not been following up with his PCP and has not been taking his medications appropriately -PT/OT for evaluation for generalized weakness and for possible placement. 2. DM 2 -Will increase his sliding scale insulin high medium dose, and add a long-acting insulin -We will continue to monitor with Accu-Cheks AC at bedtime 3. HTN/HLD/paroxysmal A. fib -Continue with Coumadin INR is subtherapeutic -Continue with his metoprolol and lisinopril and will add Norvasc secondary to his hypertension that on admission was higher than 200 systolics and is currently in the 140s 4. History of CVA -Continue with Coumadin, statin, and aspirin -We will continue to monitor his INR DVT prophylaxis-resume home Coumadin, trend INR Visit Charges Inpatient E&M: 80611 Subs Hosp L2
--- NOTE | 2020-12-26 14:00 | CASEMGMT ---
SW reviewed patient's therapy notes and he did not do well. SW went to patient's room. His nephew was present. SW introduced self. SW explained that patient did not do well with therapy and they are recommending in go somewhere for rehab. Patient asked where and SW told him wherever he chooses. Patient's nephew spoke up and said he has been to [facility] in the past. SW asked if that is where they would prefer. He said he will talk with patient as patient's there. SW gave philtent's nephew a list of SNF providers including quality and resource use data and consistent with the patient?s preferred geographic region, medical needs, and insurance network. SW spoke with patient's nephew in the hallway. He asked when patient would be discharged. SW told him probably in a day or two, but it is up to the doctor. He said it would either be [facility] or [facility]. He told SW to ask patient. SW told him that patient will have to quarantine for 14 days since he did not get COVID vaccine. SW told him after that he can schedule visits. SW told him SW will keep him updated. He thanked SW for the help. SW went to patient's room and asked if he preferred [facility] or [facility]. He said he does not know the difference. He said can I smoke at either of them. SW told him SW thinks he could smoke at [facility]. He said then that is where he wants to go. SW called [facility] regarding referral and faxed referral as well. Await their response. Plan: [facility] pending their acceptance and patient being medically ready. Shirley MAR
[2020-12-26 17:05] LABS: Bedside Glucose 254 mg/dL (70-110)
[2020-12-26] MEDS: Atorvastatin Calcium 20 MG Tablet PO (21:43)
[2020-12-26 21:50] LABS: Bedside Glucose 188 mg/dL (70-110)
[2020-12-27 02:30] VITALS: BP 151/76; PULSE 60; RESP 16; TEMP 36.4; O2SAT 97
[2020-12-27 06:15] LABS: Absolute Lymphocyte Count 1.88 X10^3/uL (0.83-4.51); Absolute Neutrophil Count 6.5 X10^3/uL (2.0-7.7); Basophil# 0.05 X10^3/uL; Basophil% 0.5 % (0-1); Eosinophil# 0.15 X10^3/uL; Eosinophils% 1.6 % (0-5); Hematocrit 40.2 % (40-54); Hemoglobin 13.2 g/dL (13.0-16.5); Lymphocyte # 1.88 X10^3/ul (0.83-4.51); Lymphocyte % 20.4 % (19-41); Mean Corp Hgb Conc 32.8 g/dL (32-36); Mean Corpuscular Hgb 28.8 pg (27.0-32.0); Mean Corpuscular Volume 87.8 fL (80-94); Mean Platelet Vol. 12.3 fl (6.2-12.0); Monocyte# 0.64 X10^3/uL; Monocyte% 6.9 % (0-10); NRBC Flagged by Analyzer 0 % (0-5); Neutrophil # 6.48 X10^3/uL (2.7-7.7); Neutrophil % 70.3 % (47-70); Platelet Count 226 K/mm3 (150-450); RBC Distribution Width CV 13.7 % (11.6-14.6); RBC Distribution Width SD 44.1 fl (35.1-43.9); Red Blood Count 4.58 M/mm3 (4.6-6.2); White Blood Count 9.2 K/mm3 (4.4-11.0)
[2020-12-27 06:45] VITALS: BP 160/80; PULSE 63; RESP 18; TEMP 36.6; O2SAT 97
[2020-12-27 06:45] LABS: Anion Gap 6 (5-15); BUN 18 mg/dL (7-18); BUN/Creat Ratio 16.4 RATIO (10-20); Calcium,Total 8.2 mg/dL (8.5-10.1); Chloride 113 mmol/L (98-107); EST Glomerular Filtration Rate 68 mL/min (>60); Est Glom Filt Rate - Afr Amer 83 mL/min (>60); Estimated Creatinine Clearance 53.56 ml/min; Glucose 188 mg/dL (74-106); Potassium 3.5 mmol/L (3.5-5.1); Sodium Level 141 mmol/L (136-145)
[2020-12-27] MEDS: Heparin Injection (Vial) 5,000 UNIT/ML VIAL 5000 UNIT SC (06:47)
[2020-12-27] MEDS: Insulin Lispro 100 UNIT/ML INSULN.PEN SC ×3 (06:47→16:45)
[2020-12-27] MEDS: 0.9% Normal Saline 1,000 ML 100 ML IV (06:54)
[2020-12-27 06:55] LABS: Bedside Glucose 191 mg/dL (70-110)
[2020-12-27 09:45] VITALS: O2SAT 97
[2020-12-27 09:50] VITALS: BP 150/66; PULSE 61; RESP 18; TEMP 36.6; O2SAT 98
[2020-12-27 09:57] VITALS: PULSE 62
[2020-12-27] MEDS: Metoprolol Tartrate 25 MG Tablet PO (09:57)
[2020-12-27] MEDS: Aspirin E.C. 81 MG Tablet PO (09:57)
[2020-12-27] MEDS: Ceftriaxone 1 GM/50 ML BAG IV (09:57)
[2020-12-27] MEDS: amLODIPine 10 MG Tablet PO (09:57)
[2020-12-27] MEDS: Cholecalciferol (VIT D3) 25 MCG TABLET (1,000 UNITS) 125 MCG PO (09:57)
[2020-12-27] MEDS: Lisinopril 2.5 MG Tablet PO (09:58)
[2020-12-27] MEDS: Lisinopril 5 MG Tablet PO (09:58)
--- NOTE | 2020-12-27 10:18 | CASEMGMT ---
RADHA spoke with [facility] and they can take patient when he is ready. RADHA received a message that patient's daughter wants patient to go to a facility in [place] where she lives. RADHA went to patient's room. RADHA explained his daughter would like him to go to a facility in [place] to be closer to her. He said, She's wrong again isn't she. He said, I will go to a facility, but I will not go down there. RADHA spoke with physician and patient may not be alert and oriented X3 or 4 but it is felt he can make the decision regarding where he wants to go. RADHA called patient's daughter. Introduced self and role at [facility]. She said she wants patient to go to a facility down where she lives. RADHA told her about RADHA's conversation with patient this am. She said she does not trust the people that are keeping an eye on him. She said they steal his meds. RADHA told him that he will not be going home from here he will be going to a SNF. RADHA told her SW can alert Adult Protective Services of her concerns. She asked why she was not consulted regarding where patient will go at d/c. RADHA told her that it is felt patient is alert and oriented enough to make this decision. She asked if we can keep him until tomorrow so she can come in and talk with him. RADHA told her physician just rounded and patient is ready today. She told SW she will have to talk with the [facility] because this isn't working. She asked about the name of the facility. RADHA gave her [facility]. RADHA offered to give her the phone number and she said she would look it up. RADHA called Gabbie at [facility] and let her know patient will be coming today. RADHA also let her know about the daughter's concerns. Plan: d/c to [facility] under skilled level of care. Shirley MAR
--- NOTE | 2020-12-27 11:46 | PCM.TXEXTCAR ---
Diet 12/25/20 16:49 Diet: Cardiac - Heart Healthy Food consistency:: Regular Liquid Consistency:: Regular/Thin Diet: Consistent Carb - Calorie Controlled Food consistency:: Regular Liquid Consistency:: Regular/Thin How many daily calories?: 2000 calorie Routine Orders/Code Status Routine Lab Work: INR Code Status: Full Code Wound(s) Bilat knees: Wound Type: Abrasion Therapies Physical Therapy: Eval and Treat Occupational Therapy: Eval and Treat Problem/Diagnosis (1) Acute UTI: Status: Acute (2) Weakness: Status: Acute (3) Diabetes mellitus, type 2: Status: Acute (4) Acute metabolic encephalopathy: Status: Resolved Allergies/Procedures Done in Hospital Allergies No Known Allergies Allergy (Verified 12/25/20 13:38) Procedures: None Type of Care/Length of Stay Estimated LOS: Convalescent Care Less Than 30 days Type of Care Needed: Skilled Rehab Potential: Good Prognosis: Good Additional Orders/Day of Discharge Day of Discharge: 12/27/20 Dietary and Speech Recommendations Dietitian Recommendations/Changes: Continue cardiac-heart healthy consistent carbohydrate calorie controlled 2000kcal/day diet. Will add ONS if intake fails at meals. Naresh Green MS, RDN, LD Discharge Plan Admission Admit Date/Time: 12/25/20 15:30 Attending Provider: Pedro Figueroa Primary Care Provider: [facility]land Discharge Orders/Prescriptions Prescriptions: New amlodipine 10 mg Tablet 10 mg PO DAILY Qty: 0 RF: 0 cephalexin 500 mg capsule 500 mg PO Q8H Qty: 14 RF: 0 Continued atorvastatin 20 mg tablet 20 mg PO DAILY RF: 0 glipizide 5 mg tablet extended release 24hr 10 mg PO DAILY RF: 0 aspirin 81 mg Tablet,Delayed Release (Dr/Ec) 81 mg PO DAILY RF: 0 cyanocobalamin (vitamin B-12) 1,000 mcg/mL solution 1,000 mcg IM QMONTH RF: 0 metformin 1,000 mg tablet 1,000 mg PO BID RF: 0 warfarin 5 mg tablet 5 mg PO DAILY RF: 0 folic acid 1 mg tablet 1 mg PO DAILY RF: 0 lisinopril 5 mg tablet 5 mg PO DAILY RF: 0 lisinopril 2.5 mg tablet 2.5 mg PO DAILY RF: 0 cholecalciferol (vitamin D3) 125 mcg (5,000 unit) capsule 5,000 unit PO DAILY RF: 0 metoprolol tartrate 25 mg tablet 25 mg PO BID RF: 0 warfarin 1 mg tablet 1 mg PO DAILY Qty: 0 RF: 0 Referrals / Follow Up: Austin Rowland MD [Primary Care Provider] - Within 2 Weeks Disposition Disposition (needs filled in before D/C Order can be placed): Assisted Facility
[2020-12-27 12:00] LABS: Bedside Glucose 242 mg/dL (70-110)
--- NOTE | 2020-12-27 13:45 | PCM.DC.SUM ---
Providers Date of Admission: 12/25/20 Primary Care Physician: Dr. [facility] MD Reason For Visit: ACUTE ENCEPHALOPATHY/UTI Diagnosis Discharge Diagnosis (1) Acute UTI: Status: Acute Code(s): N39.0 - Urinary tract infection, site not specified (2) Weakness: Status: Acute Code(s): R53.1 - Weakness (3) Diabetes mellitus, type 2: Status: Acute Code(s): E11.9 - Type 2 diabetes mellitus without complications Qualifiers: Diabetes mellitus termite exterminator helper insulin use: without termite exterminator helper use Diabetes mellitus complication status: with hyperglycemia Qualified Code(s): E11.65 - Type 2 diabetes mellitus with hyperglycemia (4) Acute metabolic encephalopathy: Status: Resolved Code(s): G93.41 - Metabolic encephalopathy Medications at Discharge Home Medications aspirin 81 mg PO DAILY 12/25/20 atorvastatin 20 mg PO DAILY 12/25/20 cholecalciferol (vitamin D3) 5,000 unit PO DAILY 12/25/20 cyanocobalamin (vitamin B-12) 1,000 mcg IM QMONTH 12/25/20 folic acid 1 mg PO DAILY 12/25/20 glipizide 10 mg PO DAILY 12/25/20 lisinopril 2.5 mg PO DAILY 12/25/20 lisinopril 5 mg PO DAILY 12/25/20 metformin 1,000 mg PO BID 12/25/20 metoprolol tartrate 25 mg PO BID 12/25/20 warfarin 5 mg PO DAILY 12/25/20 amlodipine 10 mg PO DAILY #0 tab 12/27/20 cephalexin 500 mg PO Q8H #14 cap 12/27/20 warfarin 1 mg PO DAILY #0 tab 12/27/20 Hospital Course Operations None Procedures None Summary of Care Provided Minutes Spent on Discharge: 36 Hospital Course: Per HPI: RIKI HYATT, is a 80 M who presents to the emergency room due to confusion and weakness.? On assessment, patient states it is november,.? Knows he is in [facility].? Denies fever, urinary symptoms.? No family present at bedside.? States he has been weak at home and has been crawling across to the floor to get around at home.? Both of his knees have abrasions.? He denies confusion.? Patient is a poor informant regarding his past medical history.? He states he had a stroke a few years ago.? He states he became upset with his primary care provider and stopped following up and stopped taking all of his prescribed medications.? Per records, it appears he has a past medical history of hypertension, hyperlipidemia, type 2 diabetes mellitus, paroxysmal atrial fibrillation, history of CVA. Hospital Course: 1. Acute metabolic encephalopathy secondary to UTI and hyperglycemia/DM [age]-old male presented to the emergency room with confusion and weakness. He thought that the year and history was 1940 but he knew he was in [facility]. His confusion has since resolved, his urine cultures have resulted in staph epidermidis greater than 100,000 CFU's therefore he was transitioned to p.o. Keflex from most 5 more days. He was also found to be hyperglycemic with blood sugars in the 200s, he states that he had an issue with his PCP so he stopped going to his doctor and stopped taking all of his meds including his Coumadin for his A. fib. He was placed on insulin and got his blood sugars below 200. I do recommend continuing his glipizide and his metformin as an outpatient and if necessary can add on insulin at that point once his diabetes is stable. We discussed the issue of placement with both him and his family, and [facility], I discussed with him the plan for discharge today and he expressed understanding of the risks and benefits of going to [facility] facility today and would like to go today. 2. HTN/HLD/paroxysmal A. fib-when he stopped taking his medications that include his Coumadin. He has been subtherapeutic with an INR of around 1.1, will continue his home Coumadin dosing of 6 mg a day and would recommend close monitoring of his INR and adjustment as necessary. He is on lisinopril and metoprolol at baseline, relates he supposed to be in when he came in his blood pressure was significantly elevated to more than 200 systolic therefore he was restarted on his home medications and had the addition of Norvasc 10 mg daily. Blood pressure is much improved and he seems to be tolerating the new medications well. Would recommend continuing a statin and aspirin especially for his history of a CVA. This also highlights the importance of his Coumadin in the setting of his A. fib. Physical Exam Const alert, oriented x3 and no apparent distress HEENT normocephalic and moist oral mucous membranes Eyes PERRL, EOMs intact bilaterally and conjunctivae normal Neck no lymphadenopathy, supple and no JVD Resp normal respiratory effort and clear to auscultation bilaterally Auscultation: Negative for crackles, rales, rhonchi or wheezes Cardio regular rate, regular rhythm, S1 normal heart sound, S2 normal heart sound and no murmurs GI soft to palpation, non-tender and non-distended; Negative for hepatosplenomegaly Extremity normal to inspection and no clubbing, cyanosis or edema Skin no rashes or lesions noted Skin Narrative: Bilateral knee abrasions Neuro no focal motor deficits and no sensory deficits noted Psych affect normal Appearance: appropriate ABG / Lab / Microbiology Data Result Diagrams: 12/27/20 06:02 12/27/20 06:02 Laboratory: Laboratory Results - last 24 hr 12/26/20 12/26/20 12/27/20 16:54 21:41 06:02 WBC 9.2 RBC 4.58 L Hgb 13.2 Hct 40.2 MCV 87.8 MCH 28.8 MCHC 32.8 RDW Std Deviation 44.1 H RDW Coeff of Annette 13.7 Plt Count 226 MPV 12.3 H Immature Gran % (Auto) 0.300 Neut % (Auto) 70.3 H Lymph % (Auto) 20.4 Daniels % (Auto) 6.9 Eos % (Auto) 1.6 Baso % (Auto) 0.5 Absolute Neuts (auto) 6.5 Absolute Lymphs (auto) 1.88 Nucleated RBC % 0 Sodium Potassium Chloride Carbon Dioxide Anion Gap BUN Creatinine Estim Creat Clear Calc Est GFR (MDRD) Af Amer Est GFR (MDRD) Non-Af BUN/Creatinine Ratio Glucose Calcium POC Glucose 254 H 188 H 12/27/20 12/27/20 12/27/20 06:02 06:45 11:52 WBC RBC Hgb Hct MCV MCH MCHC RDW Std Deviation RDW Coeff of Annette Plt Count MPV Immature Gran % (Auto) Neut % (Auto) Lymph % (Auto) Daniels % (Auto) Eos % (Auto) Baso % (Auto) Absolute Neuts (auto) Absolute Lymphs (auto) Nucleated RBC % Sodium 141 Potassium 3.5 Chloride 113 H Carbon Dioxide 22.0 Anion Gap 6 BUN 18 Creatinine 1.10 Estim Creat Clear Calc 53.56 Est GFR (MDRD) Af Amer 83 Est GFR (MDRD) Non-Af 68 BUN/Creatinine Ratio 16.4 Glucose 188 H Calcium 8.2 L POC Glucose 191 H 242 H Microbiology: Microbiology 12/27/20 12:10 SARS-CoV-2 Antigen (Rapid) - Final Mucosa - Nose 12/25/20 15:00 Urine Culture - Final Urine, Clean Catch Staphylococcus epidermidis Microbiology 12/27/20 12:10 Mucosa - Nose SARS-CoV-2 Antigen (Rapid) - Final 12/25/20 15:00 Urine, Clean Catch Urine Culture - Final Staphylococcus epidermidis Meaningful Use Info Meaningful Use Diagnoses (Choose all that apply): None applicable Discharge Plan Admission Admit Date/Time: 12/25/20 15:30 Attending Provider: Pedro Figueroa Primary Care Provider: [facility] Discharge Orders/Prescriptions Prescriptions: New amlodipine 10 mg Tablet 10 mg PO DAILY Qty: 0 RF: 0 cephalexin 500 mg capsule 500 mg PO Q8H Qty: 14 RF: 0 Continued atorvastatin 20 mg tablet 20 mg PO DAILY RF: 0 glipizide 5 mg tablet extended release 24hr 10 mg PO DAILY RF: 0 aspirin 81 mg Tablet,Delayed Release (Dr/Ec) 81 mg PO DAILY RF: 0 cyanocobalamin (vitamin B-12) 1,000 mcg/mL solution 1,000 mcg IM QMONTH RF: 0 metformin 1,000 mg tablet 1,000 mg PO BID RF: 0 warfarin 5 mg tablet 5 mg PO DAILY RF: 0 folic acid 1 mg tablet 1 mg PO DAILY RF: 0 lisinopril 5 mg tablet 5 mg PO DAILY RF: 0 lisinopril 2.5 mg tablet 2.5 mg PO DAILY RF: 0 cholecalciferol (vitamin D3) 125 mcg (5,000 unit) capsule 5,000 unit PO DAILY RF: 0 metoprolol tartrate 25 mg tablet 25 mg PO BID RF: 0 warfarin 1 mg tablet 1 mg PO DAILY Qty: 0 RF: 0 Referrals / Follow Up: Austin Rowland MD [Primary Care Provider] - Within 2 Weeks Disposition Disposition (needs filled in before D/C Order can be placed): [facility] Facility Visit Charges Inpatient E&M: 36975 Disch Hosp
--- NOTE | 2020-12-27 14:51 | CASEMGMT ---
RADHA faxed orders and negative COVID to [facility]. RADHA arranged for patient to get picked up at 430 via cot. SW notified patient and he wanted SW to notify his nephew. RADHA asked if he would like RADHA to notify his daughter and he said she does not need to know. RADHA also spoke with Estefany at [facility] and she is aware of admission. Plan: d/c to [facility] under skilled level of care on a convalescent stay. [facility] transported patient via cot. Shirley MAR
[2020-12-27 16:40] VITALS: BP 154/64; PULSE 56; RESP 16; TEMP 36.6; O2SAT 99
[2020-12-27 17:00] LABS: Bedside Glucose 216 mg/dL (70-110)
--- NOTE | 2020-12-27 17:08 | NURSING ---
report called to [facility]. pt transferred via cot at this time
== END 2020-12-27 17:05 | DRG 689 ==
LOC: ED 15:18 → PCU 17:08
PROVIDERS: Admitting Provider Internal Medicine; Emergency Provider Emergency Medicine; PCP Internal Medicine; Visit Provider Family Medicine
DX: N39.0 Urinary tract infection, site not specified (principal); G93.41 Metabolic encephalopathy; E11.65 Type 2 diabetes mellitus with hyperglycemia; E78.5 Hyperlipidemia, unspecified; S80.212A Abrasion, left knee, initial encounter; S80.211A Abrasion, right knee, initial encounter; I45.10 Unspecified right bundle-branch block; I44.4 Left anterior fascicular block; E87.6 Hypokalemia; I10 Essential (primary) hypertension; I48.0 Paroxysmal atrial fibrillation; Z86.73 Personal history of transient ischemic attack (TIA), and cerebral infarction without residual deficits; Z87.442 Personal history of urinary calculi; Z79.82 Long term (current) use of aspirin; Z79.84 Long term (current) use of oral hypoglycemic drugs; Z79.01 Long term (current) use of anticoagulants; Z79.899 Other long term (current) drug therapy; Z91.14 Patient's other noncompliance with medication regimen; X58.XXXA Exposure to other specified factors, initial encounter; Y93.9 Activity, unspecified; Y92.9 Unspecified place or not applicable; F17.210 Nicotine dependence, cigarettes, uncomplicated
CPT/HCPCS: 36415; 70450; 80048; 80053; 81001; 82962; 84484; 85025; 85610; 87077; 87086; 87088; 87186; 87426; 92523; 92610; 93005; 97110; 97162; 97166; 97530; 97535; 97802; 99251; 99285; J7030; A4216; G0463; J2405